=== PATIENT | female | born 1965 | race Caucasian/White ===

== ENCOUNTER 2018-10-17 18:48 | Emergency (ER) | payer SELFPAY ==
[~2018-10-17] VITALS: Ht 160 cm; Wt 62.1 kg
--- NOTE | 2018-10-17 18:52 | NUR ---
PT A/OX4, BIB [facility] FROM [facility] DUE TO FALL OFF OF 3-4 STEPS AT HOME. PT STATES SHE WAS WALKING DOWN THE STAIRS WHEN SHE "SLIPPED AND LANDED ON MY BUTT AND WHEN I TRIED TO GET UP, I FOUND MYSELF FACE DOWN ON THE MARBLE FLOOR". BS IN FIELD 110. PT C/O LOWER BACK PAIN THAT IS PROVOKED BY MOVEMENT, SHARP IN QUALITY, DOES NOT RADIATE, 9/10, CONSTANT. PT PRESENTS W/ AN ABRASION AND DRIED BLOOD ON NOSE. VSS. PT DENIES C/P, SOB, N/V/D, DIZZINESS, HEADACHE. AT BEDSIDE. ER MD AT BEDSIDE FOR MSE.
[2018-10-17] MEDS ORDERED: HYDROCODONE/APAP 5-325MG TABLET PO ONE (19:00)
--- NOTE | 2018-10-17 19:02 | NUR ---
SHIFT REPORT GIVEN TO CLARA WALKER.
--- NOTE | 2018-10-17 19:02 | NUR ---
PT REPORTS NO HEAD INJURY/LOC AT THE TIME OF FALL.
[2018-10-17] MEDS ORDERED: HYDROCODONE/APAP 5-325MG TABLET ONE (19:09)
[2018-10-17] MEDS ORDERED: MORPHINE SULFATE 4 MG/1 ML DISP.SYRIN ONE (19:48)
[2018-10-17] MEDS ORDERED: ONDANSETRON 4 MG/2 ML VIAL ONE (19:48)
[2018-10-17] MEDS ORDERED: ONDANSETRON 4 MG/2 ML VIAL IM ONE (20:00)
[2018-10-17] MEDS ORDERED: MORPHINE SULFATE 4 MG/1 ML DISP.SYRIN IM ONE (20:00)
[2018-10-17 20:18] LABS: *BILIRUBIN,URIN NEGATIVE (NEGATIVE); *BLOOD, URINE Trace-lysed (NEGATIVE); *CLARITY,URINE SLIGHTLY CLOUDY (CLEAR); *COLOR,URINE YELLOW (YELLOW); *KETONES,URINE NEGATIVE (NEGATIVE); *UROBILINOGEN,URINE 0.2 E.U./dl (NORMAL); LEUKOCYTE ESTERASE ,URINE 1+ (NEGATIVE); NITRITE, URINE NEGATIVE (NEGATIVE); UGLUCOSE NEGATIVE (NEGATIVE)
--- NOTE | 2018-10-17 20:22 | NUR ---
Patient discharged to home in stable conditon. Written and verbal after care instructions given. Patient verbalizes understanding of instructions.
[2018-10-17 20:24] LABS: BACTERIA,URINE FEW /HPF (NONE SEEN); RBC,URINE 0-3 /HPF (0-3); SQUAMOUS EPITHELIAL CELL,UR FEW /HPF (NONE SEEN)
== END 2018-10-17 20:24 | disposition home or self-care (01) ==
LOC: ER 18:48
DX: S02.2XXA Fracture of nasal bones, initial encounter for closed fracture (principal); S02.5XXA Fracture of tooth (traumatic), initial encounter for closed fracture; S01.511A Laceration without foreign body of lip, initial encounter; M54.5 Low back pain; W10.9XXA Fall (on) (from) unspecified stairs and steps, initial encounter; Y93.89 Activity, other specified; Y92.89 Other specified places as the place of occurrence of the external cause; Y99.8 Other external cause status
CPT/HCPCS: 72100; 81001; 96372 ×2; 99284; J2270; J2405; A4663